=== PATIENT | female | born 1950 | race Caucasian/White ===

== ENCOUNTER 2016-11-28 23:49 | Emergency (ER) | payer OTHER, BC ==
[~2016-11-28] VITALS: Ht 160 cm; Wt 69.5 kg
[~2016-11-28 23:49] MED LIST: AGGRENOX1 CAPSULE PO; AMLODIPINE BESYL5 MG PO; AQUAPHOR OINTM105 GM TP; ASCORBIC ACID500 M3 PO; ASPIR 8181 M1 PO; ASPIRIN EC325 MG PO; ASPIRIN325 MG PO; ATARAX,VISTARIL25 MG PO; BENICAR HCT 201 EACH PO; BUMETANIDE1 MG PO; BYSTOLIC10 MG PO; CALCIUM 500 MG1 EACH PO; CALCIUM CARB1 TABLET PO; CIPRO500 MG PO; CIPROFLOXACIN500 M1 PO; CLARINEX5 MG PO; CLONAZEPAM0.5 MG PO; CLOPIDOGREL75 MG PO; COUMADIN2 MG PO; COUMADIN3 MG PO; COUMADIN4 MG PO; COUMADIN5 MG PO; COZAAR100 MG PO; COZAAR50 MG PO; CRANBERRY500 M1 PO; DESLORATADINE5 M1 PO; DESLORATADINE5 MG PO; DEXAMETHASONE2 MG PO; FLORA-Q CAPSUL1 EACH PO; GLUCOPHAGE500 MG PO; HYDROCHLOROTH12.5 M3 PO; KEFLEX500 MG PO; KLOR-CON 1010 ME1 PO; LOPERAMIDE2 MG PO; LOSARTAN POTASS50 MG PO; METFORMIN HCL500 M1 PO; METFORMIN HCL500 MG PO; MULTIVITAMINS1 EA13 PO; NAPROXEN500 MG PO; NIZORAL SHAMPO120 ML TP; NORCO 5/3251 TABLET PO; PAXIL20 MG PO; POLYETHYLENE GL17 GM PO; PRAVACHOL80 MG PO; PRAVASTATIN SOD80 MG PO; SENNA-TIME S T1 EACH PO; SEROQUEL12.5 MG PO; THERAGRAN1 TABLET PO; Tums,OsCal PO; WARFARIN SODIUM1 MG PO; WARFARIN SODIUM4 MG PO; XARELTO20 MG PO; ZANTAC300 MG PO; ZINC SULFATE220 M1 PO
[2016-11-29 00:13] LABS: HEMATOCRIT 40.2 % (36.0-46.0); MCH 27.9 PG (29.0-34.0); MCHC 32.3 G/DL (30.0-36.0); MCV 86.3 FL (83-99); PLATELET COUNT 261 K/uL (156-360); RBC DIS.WIDTH-CV 15.6 % (11.8-14.6); RBC DIS.WIDTH-SD 48.9 % (39-53); RED BLOOD COUNT 4.66 M/uL (3.80-5.20); WHITE BLOOD COUNT 9.2 K/uL (4.1-10.2)
[2016-11-29 00:32] LABS: CHLORIDE 106 mEq/L (99-109); POTASSIUM 3.6 mEq/L (3.7-5.4); SODIUM 141 mEq/L (136-147)
[2016-11-29 00:34] LABS: GLUCOSE 124 mg/dL (70-99)
[2016-11-29 00:36] LABS: ANION GAP 10 MEQ/L (2-14); TOTAL BILIRUBIN 0.2 mg/dL (0.0-1.0)
[2016-11-29 00:38] LABS: ALKALINE PHOSPHATASE 62 IU/L (3-129); GFR ESTIMATE (CALCULATED) > 59 mL/min/
[2016-11-29 00:39] LABS: UREA NITROGEN (BUN) 21 mg/dL (9-23)
[2016-11-29 00:42] LABS: LIPASE 34 U/L (1.0-51.0)
[2016-11-29 03:36] LABS: ADD MIUA? YES; BILIRUBIN NEGATIVE; BLOOD MODERATE; COLOR YELLOW ((YELLOW)); GLUCOSE (STRIP) NEGATIVE; KETONES NEGATIVE; LEUKOCYTES LARGE; NITRITE NEGATIVE; PH, URINE 5.5 (5-8); PROTEIN (STRIP) 30; SPECIFIC GRAVITY 1.027 (1.000-1.030); UROBILINOGEN 0.2 MG/DL (0.2-1.0)
[2016-11-29 03:55] LABS: WHITE BLOOD CELLS TNTC /HPF (0-5)
[2016-11-29 03:56] LABS: BACTERIA 2+; CALCIUM OXALATE CRYSTALS RARE; CASTS NONE SEEN /LPF; CRYSTALS PRESENT; EPITHELIAL CELLS 3+; MUCUS NONE SEEN; UCUL ADDED? YES
[2016-11-29 04:11] LABS: TROP-I INTERPRETATION NEGATIVE; TROPONIN-I < 0.01 ng/mL (0.0-0.30)
[2016-11-29] MEDS ORDERED: TYLENOL WITH C1 EACH PO (05:05)
[2016-11-29] MEDS ORDERED: LEVAQUIN500 MG PO (05:05)
[2016-11-29 05:23] VITALS: BP 114/72
== END 2016-11-29 05:24 | disposition home or self-care (01) ==
LOC: EME 23:49
DX: N30.90 Cystitis, unspecified without hematuria (principal); R10.9 Unspecified abdominal pain; E78.5 Hyperlipidemia, unspecified; Z87.442 Personal history of urinary calculi; K21.9 Gastro-esophageal reflux disease without esophagitis; I69.939 Monoplegia of upper limb following unspecified cerebrovascular disease affecting unspecified side; Z87.891 Personal history of nicotine dependence; Z79.84 Long term (current) use of oral hypoglycemic drugs; Z79.01 Long term (current) use of anticoagulants
CPT/HCPCS: 74176; 80053; 81003; 83690; 84484; 85027; 87086; 93005; 99281; 99285; J7030

== ENCOUNTER 2017-04-16 08:13 | Emergency (ER) | payer OTHER, BC ==
[~2017-04-16] VITALS: Ht 160 cm; Wt 72.0 kg
[~2017-04-16 08:13] MED LIST changes: +LEVAQUIN500 MG PO; +TYLENOL WITH C1 EACH PO
[2017-04-16 09:26] LABS: BASOPHIL COUNT 0.1 K/uL (0-0.1); EOSINOPHIL (%) 4.1 % (0-5); EOSINOPHIL COUNT 0.3 K/uL (0-0.3); HEMATOCRIT 42.2 % (36.0-46.0); IMMATURE GRANULOCYTE (%) 0.5 % (0.0-0.7); INSTRUMENT ABS NEUTROPHIL CT 5.5 K/uL; LYMPHOCYTE COUNT 1.5 K/uL (1.0-2.8); MCH 27.6 PG (29.0-34.0); MCHC 32.5 G/DL (30.0-36.0); MCV 85.1 FL (83-99); MEAN PLAT.VOLUME 10.6 uM^3 (9.5-12.4); MONOCYTE (%) 7.1 % (3-12); MONOCYTE COUNT 0.6 K/uL (0-0.8); NEUTROPHIL (%) 68.4 % (45-76); NEUTROPHIL COUNT 5.5 K/uL (1.8-6.4); PLATELET COUNT 159 K/uL (156-360); PROTHROMBIN TIME 32.1 (9.2-11.2); PTT 48.1 (25-32); RBC DIS.WIDTH-CV 15.3 % (11.8-14.6); RBC DIS.WIDTH-SD 47.1 % (39-53); RED BLOOD COUNT 4.96 M/uL (3.80-5.20)
[2017-04-16 09:30] LABS: CHLORIDE 104 mEq/L (99-109); POTASSIUM 3.8 mEq/L (3.7-5.4); SODIUM 142 mEq/L (136-147)
[2017-04-16 09:32] LABS: GLUCOSE 97 mg/dL (70-99)
[2017-04-16 09:33] LABS: ANION GAP 13 MEQ/L (2-14)
[2017-04-16 09:36] LABS: GFR ESTIMATE (CALCULATED) > 59 mL/min/
[2017-04-16 09:37] LABS: UREA NITROGEN (BUN) 14 mg/dL (9-23)
[2017-04-16 09:38] LABS: CREATINE KINASE 38 IU/L (1-294); TOTAL CK 38 IU/L (1-294)
[2017-04-16 09:39] LABS: TROP-I INTERPRETATION NEGATIVE; TROPONIN-I 0.03 ng/mL (0.0-0.30)
[2017-04-16 09:43] LABS: ADD MIUA? YES; BILIRUBIN NEGATIVE; BLOOD NEGATIVE; COLOR YELLOW ((YELLOW)); GLUCOSE (STRIP) NEGATIVE; KETONES 5; LEUKOCYTES SMALL; NITRITE NEGATIVE; PROTEIN (STRIP) NEGATIVE; SPECIFIC GRAVITY 1.024 (1.000-1.030); UROBILINOGEN 0.2 MG/DL (0.2-1.0)
[2017-04-16 09:44] LABS: CK-MB < 0.4 ng/mL (0.0-4.9)
[2017-04-16 09:57] LABS: BACTERIA RARE /HPF; EPITHELIAL CELLS NONE SEEN /HPF; GRANULAR CASTS 0-5 /LPF; MUCUS NONE SEEN /LPF; UCUL ADDED? NO; WHITE BLOOD CELLS 15-20 /HPF (0-5)
[2017-04-16] MEDS ORDERED: CIPRO500 MG PO (12:48)
[2017-04-16 13:11] VITALS: BP 141/68
== END 2017-04-16 13:12 | disposition home or self-care (01) ==
LOC: EME 08:13
PROVIDERS: Emergency Medicine
DX: N39.0 Urinary tract infection, site not specified (principal); I69.920 Aphasia following unspecified cerebrovascular disease; I69.351 Hemiplegia and hemiparesis following cerebral infarction affecting right dominant side; I48.91 Unspecified atrial fibrillation; Z79.01 Long term (current) use of anticoagulants; E11.9 Type 2 diabetes mellitus without complications; Z79.84 Long term (current) use of oral hypoglycemic drugs; I10 Essential (primary) hypertension; E78.5 Hyperlipidemia, unspecified; I45.10 Unspecified right bundle-branch block; K21.9 Gastro-esophageal reflux disease without esophagitis; F32.9 Major depressive disorder, single episode, unspecified; Z87.891 Personal history of nicotine dependence; Z90.49 Acquired absence of other specified parts of digestive tract
CPT/HCPCS: 70450; 71010; 80048; 81003; 82550; 82553; 83880; 84484; 85025; 85610; 85730; 93005; 99281; 99284; G8978 GP CM; G8979 CJ; G8987 GO CL; G8988 GO CK

== ENCOUNTER 2017-05-24 12:08 | Inpatient (IN) | payer OTHER, BC ==
[~2017-05-24] VITALS: Ht 160 cm; Wt 72.0 kg
[2017-05-24 14:53] LABS: BASOPHIL COUNT 0.1 K/uL (0-0.1); EOSINOPHIL (%) 3.3 % (0-5); EOSINOPHIL COUNT 0.4 K/uL (0-0.3); HEMATOCRIT 37.9 % (36.0-46.0); IMMATURE GRANULOCYTE (%) 0.4 % (0.0-0.7); INSTRUMENT ABS NEUTROPHIL CT 7.7 K/uL; LYMPHOCYTE COUNT 1.8 K/uL (1.0-2.8); MCH 27.6 PG (29.0-34.0); MCHC 31.7 G/DL (30.0-36.0); MCV 87.3 FL (83-99); MONOCYTE (%) 8.9 % (3-12); NEUTROPHIL (%) 70.2 % (45-76); NEUTROPHIL COUNT 7.7 K/uL (1.8-6.4); PLATELET COUNT 240 K/uL (156-360); RBC DIS.WIDTH-CV 15.2 % (11.8-14.6); RBC DIS.WIDTH-SD 48.8 % (39-53); RED BLOOD COUNT 4.34 M/uL (3.80-5.20); WHITE BLOOD COUNT 10.9 K/uL (4.1-10.2)
[2017-05-24 15:03] LABS: CHLORIDE 101 mEq/L (99-109); POTASSIUM 3.7 mEq/L (3.7-5.4); SODIUM 145 mEq/L (136-147)
[2017-05-24 15:06] LABS: GLUCOSE 99 mg/dL (70-99)
[2017-05-24 15:07] LABS: ANION GAP 14 MEQ/L (2-14)
[2017-05-24 15:08] LABS: TOTAL BILIRUBIN 0.3 mg/dL (0.0-1.0)
[2017-05-24 15:09] LABS: ALKALINE PHOSPHATASE 54 IU/L (3-129); GFR ESTIMATE (CALCULATED) > 59 mL/min/
[2017-05-24 15:10] LABS: UREA NITROGEN (BUN) 15 mg/dL (9-23)
[2017-05-24 15:14] LABS: ADD MIUA? YES; BILIRUBIN NEGATIVE; BLOOD NEGATIVE; COLOR YELLOW ((YELLOW)); GLUCOSE (STRIP) NEGATIVE; KETONES NEGATIVE; LEUKOCYTES SMALL; NITRITE NEGATIVE; PROTEIN (STRIP) NEGATIVE; SPECIFIC GRAVITY 1.014 (1.000-1.030); UROBILINOGEN 0.2 MG/DL (0.2-1.0)
[2017-05-24 15:15] LABS: TROP-I INTERPRETATION NEGATIVE; TROPONIN-I < 0.01 ng/mL (0.0-0.30)
[2017-05-24 15:25] LABS: BACTERIA RARE /HPF; CALCIUM OXALATE CRYSTALS 1+ /HPF; EPITHELIAL CELLS RARE /HPF; MUCUS TRACE /LPF; RED BLOOD CELLS 0-5 /HPF (0-5); UCUL ADDED? NO
[2017-05-24 15:27] LABS: INTER. NORMALIZED RATIO 1.8; PROTHROMBIN TIME 18.9 (9.2-11.2)
[2017-05-24] MEDS ORDERED: NORVASC5 MG PO (19:29)
[2017-05-24] MEDS ORDERED: GLUCOPHAGE XR,500 MG PO (19:31)
[2017-05-24] MEDS ORDERED: PAXIL20 MG PO (19:32)
[2017-05-24] MEDS ORDERED: PRAVASTATIN SOD80 MG PO (19:32)
[2017-05-24] MEDS ORDERED: WARFARIN SODIU2.5 MG PO (19:34)
[2017-05-24] MEDS ORDERED: COUMADIN1 MG PO (19:35)
[2017-05-24] MEDS ORDERED: LITE COAT ASPI325 M1 PO (19:36)
[2017-05-24] MEDS ORDERED: VESICARE5 MG PO (19:38)
[2017-05-25 01:29] VITALS: BP 134/60
[2017-05-25 04:28] VITALS: BP 131/59
[2017-05-25 07:41] LABS: INTER. NORMALIZED RATIO 1.8; PROTHROMBIN TIME 18.9 (9.2-11.2)
[2017-05-25 08:00] VITALS: BP 110/55
[2017-05-25 12:00] VITALS: BP 150/67
[2017-05-25 16:25] VITALS: BP 123/63
[2017-05-25 21:09] VITALS: BP 113/57
[2017-05-26 00:21] VITALS: BP 119/55
[2017-05-26 03:20] VITALS: BP 126/61
[2017-05-26 06:22] LABS: INTER. NORMALIZED RATIO 2.1
[2017-05-26 07:40] VITALS: BP 107/52
[2017-05-26 12:04] VITALS: BP 131/68
[2017-05-26 12:34] LABS: POINT-OF-CARE METER ID UU14174225
[2017-05-26 15:56] LABS: EOSINOPHIL (%) 3.6 % (0-5); EOSINOPHIL COUNT 0.4 K/uL (0-0.3); HEMATOCRIT 38.3 % (36.0-46.0); IMMATURE GRANULOCYTE (%) 0.4 % (0.0-0.7); INSTRUMENT ABS NEUTROPHIL CT 7.2 K/uL; LYMPHOCYTE COUNT 1.5 K/uL (1.0-2.8); MCH 28.6 PG (29.0-34.0); MCHC 32.4 G/DL (30.0-36.0); MCV 88.2 FL (83-99); MEAN PLAT.VOLUME 10.4 uM^3 (9.5-12.4); MONOCYTE (%) 7.3 % (3-12); MONOCYTE COUNT 0.7 K/uL (0-0.8); NEUTROPHIL COUNT 7.2 K/uL (1.8-6.4); PLATELET COUNT 253 K/uL (156-360); RBC DIS.WIDTH-CV 15.2 % (11.8-14.6); RBC DIS.WIDTH-SD 49.3 % (39-53); RED BLOOD COUNT 4.34 M/uL (3.80-5.20); WHITE BLOOD COUNT 9.8 K/uL (4.1-10.2)
[2017-05-26 16:06] LABS: ALKALINE PHOSPHATASE 51 IU/L (3-129); ANION GAP 8 MEQ/L (2-14); CHLORIDE 102 MEQ/L (99-109); GFR ESTIMATE (CALCULATED) > 59 mL/min/; GLUCOSE 121 mg/dL (70-99); POTASSIUM 4.3 MEQ/L (3.7-5.4); SAMPLE HEMOLYSIS CHECK 0; SAMPLE ICTERIC CHECK 0; SAMPLE LIPEMIA CHECK 0; SODIUM 141 MEQ/L (136-147); TOTAL BILIRUBIN 0.4 MG/DL (0.0-1.0); UREA NITROGEN (BUN) 13 mg/dL (9-23)
[2017-05-26 19:52] VITALS: BP 128/62
[2017-05-26 21:22] LABS: POINT-OF-CARE METER ID UU14174225
[2017-05-26 23:41] VITALS: BP 130/66
[2017-05-27 04:14] VITALS: BP 104/57
[2017-05-27 05:49] LABS: HEMATOCRIT 34.8 % (36.0-46.0); MCH 27.9 PG (29.0-34.0); MCHC 32.2 G/DL (30.0-36.0); MCV 86.6 FL (83-99); PLATELET COUNT 242 K/uL (156-360); RBC DIS.WIDTH-SD 48.1 % (39-53); RED BLOOD COUNT 4.02 M/uL (3.80-5.20)
[2017-05-27 06:13] LABS: ALKALINE PHOSPHATASE 44 IU/L (3-129); ANION GAP 5 MEQ/L (2-14); CHLORIDE 105 MEQ/L (99-109); GFR ESTIMATE (CALCULATED) > 59 mL/min/; GLUCOSE 116 mg/dL (70-99); POTASSIUM 4.1 MEQ/L (3.7-5.4); SAMPLE HEMOLYSIS CHECK 0; SAMPLE ICTERIC CHECK 0; SAMPLE LIPEMIA CHECK 0; SODIUM 143 MEQ/L (136-147); TOTAL BILIRUBIN 0.4 MG/DL (0.0-1.0); UREA NITROGEN (BUN) 13 mg/dL (9-23)
[2017-05-27 06:16] LABS: TROP-I INTERPRETATION NEGATIVE; TROPONIN-I < 0.01 ng/mL (0.0-0.30)
[2017-05-27 06:36] LABS: PROTHROMBIN TIME 20.8 (9.2-11.2)
[2017-05-27 07:48] VITALS: BP 129/68
[2017-05-27 11:49] VITALS: BP 128/60
[2017-05-27 12:03] LABS: POINT-OF-CARE METER ID UU14188625
[2017-05-27 15:49] VITALS: BP 122/65
[2017-05-27 16:45] LABS: POINT-OF-CARE METER ID UU14188625
[2017-05-27 20:00] VITALS: BP 134/78
[2017-05-27 21:12] LABS: POINT-OF-CARE METER ID UU13113717
[2017-05-27 23:37] VITALS: BP 130/74
[2017-05-28 04:19] VITALS: BP 123/58
[2017-05-28 05:54] LABS: EOSINOPHIL (%) 3.8 % (0-5); EOSINOPHIL COUNT 0.3 K/uL (0-0.3); HEMATOCRIT 34.3 % (36.0-46.0); IMMATURE GRANULOCYTE (%) 0.5 % (0.0-0.7); LYMPHOCYTE COUNT 1.4 K/uL (1.0-2.8); MCH 28.8 PG (29.0-34.0); MCHC 33.2 G/DL (30.0-36.0); MCV 86.6 FL (83-99); MEAN PLAT.VOLUME 9.8 uM^3 (9.5-12.4); MONOCYTE (%) 7.9 % (3-12); MONOCYTE COUNT 0.6 K/uL (0-0.8); NEUTROPHIL (%) 68.5 % (45-76); PLATELET COUNT 266 K/uL (156-360); RBC DIS.WIDTH-CV 15.1 % (11.8-14.6); RED BLOOD COUNT 3.96 M/uL (3.80-5.20); WHITE BLOOD COUNT 7.3 K/uL (4.1-10.2)
[2017-05-28 06:16] LABS: PROTHROMBIN TIME 20.7 (9.2-11.2)
[2017-05-28 07:00] LABS: ANION GAP 9 MEQ/L (2-14); CHLORIDE 108 MEQ/L (99-109); GFR ESTIMATE (CALCULATED) > 59 mL/min/; GLUCOSE 115 mg/dL (70-99); POTASSIUM 4.5 MEQ/L (3.7-5.4); SAMPLE HEMOLYSIS CHECK 0; SAMPLE ICTERIC CHECK 0; SAMPLE LIPEMIA CHECK 0; SODIUM 144 MEQ/L (136-147); UREA NITROGEN (BUN) 17 mg/dL (9-23)
[2017-05-28 08:21] VITALS: BP 132/68
[2017-05-28 08:23] LABS: POINT-OF-CARE METER ID UU14188625
[2017-05-28 12:03] VITALS: BP 126/74
[2017-05-28 12:08] LABS: POINT-OF-CARE METER ID UU14188625
[2017-05-28 16:15] VITALS: BP 140/55
[2017-05-28 17:09] LABS: POINT-OF-CARE METER ID UU14188625
[2017-05-28 19:40] VITALS: BP 132/62
[2017-05-28 21:05] LABS: POINT-OF-CARE METER ID UU14188625
[2017-05-28 23:44] VITALS: BP 129/61
[2017-05-29 03:41] VITALS: BP 130/60
[2017-05-29 06:29] LABS: INTER. NORMALIZED RATIO 2.2; PROTHROMBIN TIME 24.8 SEC (10.2-12.9)
[2017-05-29 07:49] VITALS: BP 146/72
[2017-05-29 08:44] LABS: POINT-OF-CARE METER ID UU13113717
[2017-05-29 11:54] VITALS: BP 130/63
[2017-05-29 12:10] LABS: POINT-OF-CARE METER ID UU14188625
[2017-05-29] MEDS ORDERED: TYLENOL REGULA325 MG PO (15:05)
[2017-05-29] MEDS ORDERED: ASPIR-LOW81 MG PO (15:05)
[2017-05-29] MEDS ORDERED: CLOPIDOGREL75 MG PO (15:07)
[2017-05-29] MEDS ORDERED: LEVAQUIN500 MG PO (15:07)
[2017-05-29] MEDS ORDERED: OXYCODONE HCL5 MG PO (15:07)
== END 2017-05-29 16:05 | disposition home health service (06) | DRG 558 ==
LOC: EME 12:08 → 5SOUTH 19:36 → EDOF 19:36 → 5SOUTH 05-25 01:11
PROVIDERS: Emergency Medicine; Family Medicine; Internal Medicine; Student in an Organized Health Care Education/Training Program
DX: M76.9 Unspecified enthesopathy, lower limb, excluding foot (principal); M70.851 Other soft tissue disorders related to use, overuse and pressure, right thigh; N12 Tubulo-interstitial nephritis, not specified as acute or chronic; I69.320 Aphasia following cerebral infarction; I69.321 Dysphasia following cerebral infarction; I69.351 Hemiplegia and hemiparesis following cerebral infarction affecting right dominant side; J44.9 Chronic obstructive pulmonary disease, unspecified; K21.9 Gastro-esophageal reflux disease without esophagitis; R26.2 Difficulty in walking, not elsewhere classified; E11.9 Type 2 diabetes mellitus without complications; E78.2 Mixed hyperlipidemia; F03.90 Unspecified dementia, unspecified severity, without behavioral disturbance, psychotic disturbance, mood disturbance, and anxiety; M19.90 Unspecified osteoarthritis, unspecified site; M79.604 Pain in right leg; R10.30 Lower abdominal pain, unspecified; R42 Dizziness and giddiness; I35.0 Nonrheumatic aortic (valve) stenosis; I10 Essential (primary) hypertension; I45.2 Bifascicular block; I48.2 Chronic atrial fibrillation; F41.9 Anxiety disorder, unspecified; K59.00 Constipation, unspecified; R32 Unspecified urinary incontinence; F32.9 Major depressive disorder, single episode, unspecified; Z95.1 Presence of aortocoronary bypass graft; Z79.01 Long term (current) use of anticoagulants; Z79.82 Long term (current) use of aspirin; Z79.84 Long term (current) use of oral hypoglycemic drugs; Z87.891 Personal history of nicotine dependence
CPT/HCPCS: 70450; 70551; 71010; 73502; 73721; 80048; 80053; 81003; 82948; 84484; 85025; 85027; 85610; 87086; 93005; 93880; 94799; 97530 GO; 99281; 99285; J0692; J1815; J7030; J7050

== ENCOUNTER 2017-06-10 17:14 | Emergency (ER) | payer OTHER, BC ==
[~2017-06-10 17:14] MED LIST changes: +ASPIR-LOW81 MG PO; +COUMADIN1 MG PO; +GLUCOPHAGE XR,500 MG PO; +LITE COAT ASPI325 M1 PO; +NORVASC5 MG PO; +OXYCODONE HCL5 MG PO; +TYLENOL REGULA325 MG PO; +VESICARE5 MG PO; +WARFARIN SODIU2.5 MG PO
[2017-06-10 20:05] VITALS: BP 100/60
== END 2017-06-10 20:10 | disposition home or self-care (01) ==
LOC: EME 17:14
DX: S00.81XA Abrasion of other part of head, initial encounter (principal); W05.0XXA Fall from non-moving wheelchair, initial encounter; Z86.73 Personal history of transient ischemic attack (TIA), and cerebral infarction without residual deficits
CPT/HCPCS: 70450; 70486; 99281; 99283

== ENCOUNTER 2017-10-29 22:27 | Inpatient (IN) | payer OTHER, BC ==
[~2017-10-29] VITALS: Ht 160 cm; Wt 79.5 kg
[~2017-10-29 22:27] MED LIST changes: -SEROQUEL12.5 MG PO; +SEROQUEL50 MG PO
[2017-10-29 23:25] LABS: HEMATOCRIT 40.4 % (36.0-46.0); MCH 27.5 PG (29.0-34.0); MCHC 32.2 G/DL (30.0-36.0); MCV 85.4 FL (83-99); MEAN PLAT.VOLUME 9.7 uM^3 (9.5-12.4); PLATELET COUNT 277 K/uL (156-360); RBC DIS.WIDTH-CV 15.6 % (11.8-14.6); RBC DIS.WIDTH-SD 48.2 % (39-53); RED BLOOD COUNT 4.73 M/uL (3.80-5.20); WHITE BLOOD COUNT 10.9 K/uL (4.1-10.2)
[2017-10-29 23:46] LABS: CHLORIDE 97 mEq/L (99-109); POTASSIUM 3.7 mEq/L (3.7-5.4); SODIUM 138 mEq/L (136-147)
[2017-10-29 23:50] LABS: TOTAL BILIRUBIN 0.4 mg/dL (0.0-1.0)
[2017-10-30 00:30] LABS: GLUCOSE 112 mg/dL (70-99)
[2017-10-30 00:31] LABS: ANION GAP 13 MEQ/L (2-14)
[2017-10-30 00:34] LABS: ALKALINE PHOSPHATASE 67 IU/L (3-129); GFR ESTIMATE (CALCULATED) > 59 mL/min/
[2017-10-30 00:35] LABS: UREA NITROGEN (BUN) 17 mg/dL (9-23)
[2017-10-30 02:10] LABS: CARBON DIOXIDE (BICARBONATE) 36.4 MEQ/L (20-31)
[2017-10-30 02:13] LABS: D-DIMER ELISA < 150.00 ng/mLDDU (<230)
[2017-10-30 02:26] LABS: MAGNESIUM 1.9 mg/dL (1.3-2.7)
[2017-10-30 04:48] LABS: ADD MIUA? YES; BILIRUBIN NEGATIVE; BLOOD NEGATIVE; COLOR YELLOW ((YELLOW)); GLUCOSE (STRIP) NEGATIVE; KETONES 5; LEUKOCYTES MODERATE; NITRITE NEGATIVE; PROTEIN (STRIP) 100; SPECIFIC GRAVITY 1.021 (1.000-1.030); UROBILINOGEN 0.2 MG/DL (0.2-1.0)
[2017-10-30 05:07] LABS: BACTERIA 3+ /HPF; CALCIUM OXALATE CRYSTALS 4+ /HPF; EPITHELIAL CELLS RARE /HPF; MUCUS 4+ /LPF; RED BLOOD CELLS 30-40 /HPF (0-5); UCUL ADDED? YES; WHITE BLOOD CELLS TNTC /HPF (0-5)
[2017-10-30 10:51] LABS: INTER. NORMALIZED RATIO 2.2; PROTHROMBIN TIME 24.6 SEC (10.2-12.9)
[2017-10-30 13:22] VITALS: BP 126/63
[2017-10-30 13:24] VITALS: BP 126/63
[2017-10-30 16:46] LABS: INTER. NORMALIZED RATIO 2.8; PROTHROMBIN TIME 31.8 SEC (10.2-12.9)
[2017-10-30 17:04] VITALS: BP 144/74
[2017-10-30 20:19] VITALS: BP 102/57
[2017-10-30 23:36] VITALS: BP 110/58
[2017-10-31 03:15] VITALS: BP 111/57
[2017-10-31 06:04] LABS: INTER. NORMALIZED RATIO 2.2; PROTHROMBIN TIME 25.7 SEC (10.2-12.9)
[2017-10-31 08:00] VITALS: BP 135/62
[2017-10-31 11:52] VITALS: BP 109/54
[2017-10-31] MEDS ORDERED: LEVAQUIN500 MG PO (13:47)
== END 2017-10-31 15:30 | disposition home or self-care (01) | DRG 194 ==
LOC: EME 22:27 → 3EAST 10-30 06:00 → EDOF 10-30 06:00 → 4SOUTH 10-30 06:00 → ENRESERV 10-30 06:23 → 4SOUTH 10-30 12:01 → ENRESERV 10-31 10:21 → 3EAST 10-31 11:47
PROVIDERS: Emergency Medicine; Family Medicine
DX: J15.9 Unspecified bacterial pneumonia (principal); J44.0 Chronic obstructive pulmonary disease with (acute) lower respiratory infection; N39.0 Urinary tract infection, site not specified; E87.2 Acidosis; E78.5 Hyperlipidemia, unspecified; I69.351 Hemiplegia and hemiparesis following cerebral infarction affecting right dominant side; E66.9 Obesity, unspecified; Z68.31 Body mass index [BMI] 31.0-31.9, adult; I48.2 Chronic atrial fibrillation; Z99.81 Dependence on supplemental oxygen; I10 Essential (primary) hypertension; K21.9 Gastro-esophageal reflux disease without esophagitis; F41.9 Anxiety disorder, unspecified; K52.9 Noninfective gastroenteritis and colitis, unspecified; F32.9 Major depressive disorder, single episode, unspecified; I69.391 Dysphagia following cerebral infarction; I69.320 Aphasia following cerebral infarction; R13.10 Dysphagia, unspecified; E11.9 Type 2 diabetes mellitus without complications; Z79.01 Long term (current) use of anticoagulants; R47.02 Dysphasia; R47.01 Aphasia; M24.574 Contracture, right foot; F03.90 Unspecified dementia, unspecified severity, without behavioral disturbance, psychotic disturbance, mood disturbance, and anxiety
CPT/HCPCS: 71020; 71250; 74176; 80053; 81003; 82803; 83605; 83735; 83880; 85027; 85379; 85610; 87040; 87086; 94640; 94640 76; 94799; 99202; J1956; J2405; J7030

== ENCOUNTER 2018-04-04 03:56 | Inpatient (IN) | payer OTHER, BC ==
[~2018-04-04] VITALS: Ht 160 cm; Wt 69.0 kg
[~2018-04-04 03:56] MED LIST changes: -GLUCOPHAGE XR,500 MG PO; +SEROQUEL100 MG PO; -SEROQUEL50 MG PO
[2018-04-04 04:57] LABS: CHLORIDE 98 mEq/L (99-109); POTASSIUM 3.5 mEq/L (3.7-5.4); SODIUM 143 mEq/L (136-147)
[2018-04-04 05:00] LABS: INTER. NORMALIZED RATIO 2.9
[2018-04-04 05:01] LABS: TOTAL BILIRUBIN 0.5 mg/dL (0.0-1.0)
[2018-04-04 05:03] LABS: CREATININE 0.8 mg/dL (0.6-1.3); GFR ESTIMATE (CALCULATED) > 59 mL/min/
[2018-04-04 05:05] LABS: AST (GOT) 13 IU/L (2-34); DIRECT BILIRUBIN 0.2 mg/dL (0.0-0.3)
[2018-04-04 05:08] LABS: BASOPHIL (%) 0.4 % (0-1); BASOPHIL COUNT 0.1 K/uL (0-0.1); EOSINOPHIL (%) 0.2 % (0-5); HEMATOCRIT 35.8 % (36.0-46.0); HEMOGLOBIN 11.8 G/DL (11.9-15.5); IMMATURE GRANULOCYTE (%) 0.6 % (0.0-0.7); LYMPHOCYTE (%) 13.3 % (15-42); LYMPHOCYTE COUNT 1.8 K/uL (1.0-2.8); MCH 28.3 PG (29.0-34.0); MCV 85.9 FL (83-99); MONOCYTE (%) 7.1 % (3-12); NEUTROPHIL (%) 78.4 % (45-76); NEUTROPHIL COUNT 10.7 K/uL (1.8-6.4); PLATELET COUNT 305 K/uL (156-360); RBC DIS.WIDTH-CV 15.5 % (11.8-14.6); RBC DIS.WIDTH-SD 48.6 % (39-53); RED BLOOD COUNT 4.17 M/uL (3.80-5.20); WHITE BLOOD COUNT 13.7 K/uL (4.1-10.2)
[2018-04-04 05:33] LABS: APPEARANCE CLOUDY ((CLEAR)); BILIRUBIN NEGATIVE; BLOOD MODERATE; GLUCOSE (STRIP) 50; KETONES NEGATIVE; LEUKOCYTES TRACE; NITRITE NEGATIVE; PROTEIN (STRIP) 100; UROBILINOGEN 0.2 MG/DL (0.2-1.0)
[2018-04-04 05:42] LABS: COLOR RED ((YELLOW))
[2018-04-04 06:08] LABS: GLUCOSE 134 mg/dL (70-99)
[2018-04-04 06:11] LABS: ALKALINE PHOSPHATASE 60 IU/L (3-129)
[2018-04-04 06:13] LABS: UREA NITROGEN (BUN) 15 mg/dL (9-23)
[2018-04-04 06:15] LABS: ALT (GPT) 12 IU/L (3-49); LIPASE 17 U/L (1.0-51.0)
[2018-04-04 06:16] LABS: RED BLOOD CELLS TNTC /HPF (0-5)
[2018-04-04 06:17] LABS: EPITHELIAL CELLS RARE /HPF; MUCUS NONE SEEN /LPF; WHITE BLOOD CELLS 20-30 /HPF (0-5)
[2018-04-04 06:18] LABS: BACTERIA 1+ /HPF; UCUL ADDED? YES
[2018-04-04] MEDS ORDERED: CARTIA XT240 MG PO (07:51)
[2018-04-04] MEDS ORDERED: KLONOPIN0.5 M1 PO (07:53)
[2018-04-04] MEDS ORDERED: ASPIRIN81 M2 PO (07:55)
[2018-04-04 18:05] VITALS: BP 110/56
[2018-04-04 20:01] VITALS: BP 116/58
[2018-04-05 01:56] VITALS: BP 120/62
[2018-04-05 05:04] VITALS: BP 122/60
[2018-04-05 06:10] LABS: BASOPHIL (%) 0.1 % (0-1); EOSINOPHIL (%) 0 % (0-5); HEMATOCRIT 33.5 % (36.0-46.0); HEMOGLOBIN 10.7 G/DL (11.9-15.5); IMMATURE GRANULOCYTE (%) 0.8 % (0.0-0.7); LYMPHOCYTE (%) 7.8 % (15-42); LYMPHOCYTE COUNT 0.8 K/uL (1.0-2.8); MCH 28.6 PG (29.0-34.0); MCHC 31.9 G/DL (30.0-36.0); MCV 89.6 FL (83-99); MONOCYTE (%) 3.9 % (3-12); MONOCYTE COUNT 0.4 K/uL (0-0.8); NEUTROPHIL (%) 87.4 % (45-76); NEUTROPHIL COUNT 8.5 K/uL (1.8-6.4); NRBC (%) 0.2 /100 WBC (0-0); PLATELET COUNT 245 K/uL (156-360); RBC DIS.WIDTH-SD 52.6 % (39-53); RED BLOOD COUNT 3.74 M/uL (3.80-5.20); WHITE BLOOD COUNT 9.7 K/uL (4.1-10.2)
[2018-04-05 06:19] LABS: INTER. NORMALIZED RATIO 2.9
[2018-04-05 06:40] LABS: ALBUMIN 3.3 G/DL (3.2-4.8); ALKALINE PHOSPHATASE 47 IU/L (3-129); ALT (GPT) 9 IU/L (3-49); AST (GOT) 12 IU/L (2-34); CREATININE 0.5 MG/DL (0.6-1.3); GFR ESTIMATE (CALCULATED) > 59 mL/min/; GLUCOSE 146 mg/dL (70-99); POTASSIUM 3.7 MEQ/L (3.7-5.4); SODIUM 145 MEQ/L (136-147); TOTAL PROTEIN 6.2 G/DL (6.4-8.3); UREA NITROGEN (BUN) 9 mg/dL (9-23)
[2018-04-05 06:46] LABS: CHLORIDE 111 MEQ/L (99-109); TOTAL BILIRUBIN 0.2 MG/DL (0.0-1.0)
[2018-04-05 20:04] VITALS: BP 123/60
[2018-04-05 23:28] VITALS: BP 140/67
[2018-04-06 04:19] VITALS: BP 146/66
[2018-04-06 06:23] LABS: INTER. NORMALIZED RATIO 3.5
[2018-04-06 07:37] VITALS: BP 131/61
[2018-04-06 11:56] VITALS: BP 152/70
[2018-04-06 16:08] VITALS: BP 132/59
[2018-04-06 21:02] VITALS: BP 145/65
[2018-04-06 23:44] VITALS: BP 163/74
[2018-04-07 03:36] VITALS: BP 147/65
[2018-04-07 07:16] LABS: INTER. NORMALIZED RATIO 2.6
[2018-04-07 08:04] VITALS: BP 140/68
[2018-04-07 12:23] VITALS: BP 121/63
[2018-04-07 15:56] VITALS: BP 137/63
[2018-04-07] MEDS ORDERED: AUGMENTIN500 MG PO (17:37)
== END 2018-04-07 19:25 | disposition home or self-care (01) | DRG 872 ==
LOC: EME 03:56 → EDOF 08:30 → 3EAST 08:30 → ENRESERV 08:33 → CANRESERV 09:03 → ENRESERV 09:03 → EDOF 09:34 → ENRESERV 10:05 → 3EAST 13:10
PROVIDERS: Internal Medicine; Physician Assistant
DX: A41.9 Sepsis, unspecified organism (principal); N13.6 Pyonephrosis; J44.1 Chronic obstructive pulmonary disease with (acute) exacerbation; R31.0 Gross hematuria; I69.351 Hemiplegia and hemiparesis following cerebral infarction affecting right dominant side; I69.320 Aphasia following cerebral infarction; I48.2 Chronic atrial fibrillation; I10 Essential (primary) hypertension; E11.9 Type 2 diabetes mellitus without complications; D64.9 Anemia, unspecified; K21.9 Gastro-esophageal reflux disease without esophagitis; E78.5 Hyperlipidemia, unspecified; F41.9 Anxiety disorder, unspecified; F32.9 Major depressive disorder, single episode, unspecified; Z79.01 Long term (current) use of anticoagulants; Z87.891 Personal history of nicotine dependence; Z91.041 Radiographic dye allergy status
CPT/HCPCS: 36415; 71250; 74176; 76770; 80048; 80053; 80076; 80170; 81003; 82565; 82948; 83605; 83690; 84439; 84443; 85025; 85610; 87040; 87077; 87086; 87086 GA; 87186; 94640; 94799; 99202; 99281; 99285; J0295; J0696; J1100; J1170; J1580; J1815; J2405; J3010; J7030; J7050